=== PATIENT | male | born 1975 | race African-American/Black ===

== ENCOUNTER 2017-05-09 19:24 | Emergency (ER) | payer OTHER ==
[~2017-05-09] VITALS: Ht 175.3 cm; Wt 78.7 kg
[2017-05-09 19:26] VITALS: BP 143/78
[2017-05-09] MEDS ORDERED: KETOROLAC 30 MG/1 ML IM ONE (19:30)
[2017-05-09] MEDS ORDERED: METHOCARBAMOL 750 MG TABLET PO ONE (19:30)
[2017-05-09] MEDS ORDERED: METHOCARBAMOL 750 MG TABLET ONE (19:44)
[2017-05-09] MEDS ORDERED: KETOROLAC 30 MG/1 ML ONE (19:44)
== END 2017-05-09 21:20 | disposition home or self-care (01) ==
LOC: ED 20:40
DX: S16.1XXA Strain of muscle, fascia and tendon at neck level, initial encounter (principal); S39.012A Strain of muscle, fascia and tendon of lower back, initial encounter; V49.9XXA Car occupant (driver) (passenger) injured in unspecified traffic accident, initial encounter; Y93.89 Activity, other specified; Y92.410 Unspecified street and highway as the place of occurrence of the external cause; Y99.8 Other external cause status
CPT/HCPCS: 72020; 72050; 72110; 96372; 99284; J1885

== ENCOUNTER 2017-06-17 07:30 | Emergency (ER) | payer OTHER ==
[~2017-06-17] VITALS: Ht 175.3 cm; Wt 76.5 kg
[2017-06-17 07:33] VITALS: BP 143/76
[2017-06-17] MEDS ORDERED: KETOROLAC 30 MG/1 ML ONE (08:28)
[2017-06-17] MEDS ORDERED: KETOROLAC 30 MG/1 ML IM ONE (08:30)
== END 2017-06-17 10:20 | disposition home or self-care (01) ==
LOC: ED 09:50
DX: G89.11 Acute pain due to trauma (principal); M79.641 Pain in right hand; M25.552 Pain in left hip; V89.2XXD Person injured in unspecified motor-vehicle accident, traffic, subsequent encounter
CPT/HCPCS: 73130; 73502; 96372; 99284; J1885

== ENCOUNTER 2018-02-03 20:26 | Emergency (ER) | payer OTHER ==
[~2018-02-03] VITALS: Ht 175.3 cm; Wt 80.0 kg
[2018-02-03 20:28] VITALS: BP 154/90
== END 2018-02-03 21:17 | disposition home or self-care (01) ==
LOC: ED 21:11
DX: Q65.89 Other specified congenital deformities of hip (principal)
CPT/HCPCS: 99283

== ENCOUNTER 2020-08-10 14:43 | Emergency (ER) | payer OTHER ==
[~2020-08-10] VITALS: Ht 175.3 cm; Wt 80.2 kg
[2020-08-10] MEDS ORDERED: ONDANSETRON 2MG/ML, 2ML IVPush ONE (15:30)
[2020-08-10] MEDS ORDERED: FAMOTIDINE 20 MG/2 ML IV ONE (15:30)
[2020-08-10] MEDS ORDERED: SODIUM CHLORIDE 0.9% 1,000ML IVBOLUS ONE (15:30)
[2020-08-10 15:35] LABS: BASOPHILS % (AUTO) 0 % (0-1); EOSINOPHILS % (AUTO) 0 % (1-7); LYMPHOCYTES % (AUTO) 3 % (22-44); MEAN CORPUSCULAR HEMOGLOBIN 33.7 pg (27.5-34.5); MEAN CORPUSCULAR HGB CONC 35.1 g/dL (33.2-36.2); MEAN PLATELET VOLUME 9.3 fL (7.4-10.4); MONOCYTES % (AUTO) 6 % (2-9); NEUTROPHILS % (AUTO) 91 % (42-75); PLATELET COUNT 241 x10^3/uL (130-400); RED BLOOD COUNT 5.34 x10^6/uL (4.38-5.82); RED CELL DISTRIBUTION WIDTH 12.3 % (9.4-14.8)
[2020-08-10 15:36] LABS: ALANINE AMINOTRANSFERASE 37 U/L (12-78); ALBUMIN 4.4 g/dL (3.4-5.0); ANION GAP 9 mmol/L (5-15); CALCIUM 9.2 mg/dL (8.5-10.1); CHLORIDE 112 mmol/L (98-107)
[2020-08-10 15:39] LABS: ALKALINE PHOSPHATASE 87 U/L (45-117); BILIRUBIN,TOTAL 1.7 mg/dL (0.2-1.0); CREATININE 1.15 mg/dL (0.7-1.3); TOTAL PROTEIN 8.6 g/dL (6.4-8.2)
[2020-08-10 15:40] LABS: MD NO
[2020-08-10] MEDS ORDERED: FAMOTIDINE 20 MG/2 ML ONE (15:47)
[2020-08-10] MEDS ORDERED: ONDANSETRON 2MG/ML, 2ML ONE (15:47)
[2020-08-10] MEDS ORDERED: KETOROLAC 30 MG/1 ML ONE (16:49)
[2020-08-10] MEDS ORDERED: KETOROLAC 30 MG/1 ML IVPush ONE (17:00)
[2020-08-10 17:06] VITALS: BP 139/71
== END 2020-08-10 17:08 | disposition home or self-care (01) ==
LOC: ED 16:08
DX: K52.29 Other allergic and dietetic gastroenteritis and colitis (principal); R10.84 Generalized abdominal pain; R11.2 Nausea with vomiting, unspecified; R19.7 Diarrhea, unspecified; F17.200 Nicotine dependence, unspecified, uncomplicated
CPT/HCPCS: 36415; 80053; 83690; 85025; 96361; 96374; 96375; 99284; J1885; J2405; J7030

== ENCOUNTER 2021-01-04 04:10 | Emergency (ER) | payer OTHER ==
[~2021-01-04] VITALS: Ht 175.3 cm; Wt 85.8 kg
[2021-01-04 04:13] VITALS: BP 153/110
--- NOTE | 2021-01-04 04:36 | NUR ---
TEAROOM HOST: PT. TO ROOM FROM LOBBY AT THIS TIME.
--- NOTE | 2021-01-04 04:39 | NUR ---
PT AMBULATORY BACK FROM [facility] C STEADY GAIT.
[2021-01-04] MEDS ORDERED: FLUORESCEIN OPHTHALMIC 1 MG STRIP ONE (05:21)
--- NOTE | 2021-01-04 05:26 | NUR ---
PT STATES USING POLYTRIM EYE GTTS X 7 DAYS S MUCH RELIEF FOR "PINK EYE". PT ALSO C/O SKIN IRRITATION. V/A COMPLETED.
[2021-01-04] MEDS ORDERED: DIPH,PERTUSS(ACELL),TET VAC/PF 0.5 ML IM-VACC ONE ×2 (05:30→05:52)
[2021-01-04] MEDS ORDERED: FLUORESCEIN OPHTHALMIC 1 MG STRIP EACHEYE ONE (05:30)
== END 2021-01-04 06:05 | disposition home or self-care (01) ==
LOC: ED 05:51
DX: H10.33 Unspecified acute conjunctivitis, bilateral (principal); L03.811 Cellulitis of head [any part, except face]; L01.00 Impetigo, unspecified; F17.200 Nicotine dependence, unspecified, uncomplicated
CPT/HCPCS: 90471; 90715; 99283